=== PATIENT | female | born 1975 | race Caucasian/White ===

== ENCOUNTER 2020-05-31 16:49 | Emergency (ER) | payer MEDICAID ==
[~2020-05-31] VITALS: Ht 165.1 cm; Wt 80.9 kg
[2020-05-31 17:02] VITALS: Ht 165.1 cm; Wt 80.9 kg
[2020-05-31] MEDS ORDERED: LOPRESSOR25 MG PO ×2 (17:04→20:36)
[2020-05-31] MEDS ORDERED: ASPIRIN81 MG PO (17:05)
[2020-05-31 18:31] LABS: BASOPHILS 0.9 % (0-2); EOSINOPHILS 4.6 % (0-7); HEMATOCRIT 29.2 % (36.0-48.0); HEMOGLOBIN 8.1 g/dL (12-16); IMMATURE GRANULOCYTES 0.2 % (0-5); LYMPHOCYTE ABS# 1.89 10x3/uL (1.18-3.74); LYMPHOCYTES 35.1 % (15-50); MCHC 27.7 g/dL (31.0-37.0); MCV 61.5 fL (80.0-100.0); MONOCYTES 8.2 % (2-11); NEUTROPHIL ABS# 2.74 10x3/uL (1.56-6.13); PLATELET COUNT 196 10x3/uL (130-400); RBC 4.75 10x6/uL (4.00-5.40); RDW 18.4 % (11.5-14.5); WBC 5.4 10x3/uL (4.8-10.8)
[2020-05-31 18:36] LABS: MCH 17.1 pg (26.0-34.0)
[2020-05-31 18:40] LABS: CALC OSMOLALITY 272 mosm/kg (275-300); CALCIUM 9.4 mg/dL (8.5-10.1); CARBON DIOXIDE 25.2 mmol/L (21.0-32.0); CHLORIDE - SERUM 105 mmol/L (98-107); CREATININE - SERUM 0.7 mg/dL (0.6-1.3); GLUCOSE 92 mg/dL (74-106); POTASSIUM - SERUM 3.9 mmol/L (3.5-5.1); SODIUM 137 mmol/L (136-145); UREA NITROGEN 9 mg/dL (7-18); eGFR NON AFRICAN AMERICAN > 90 mL/min (90-120)
[2020-05-31 18:44] LABS: APTT 25.8 SECONDS (22.8-39.4); INR 1.08 (0.85-1.17); PROTIME 12.9 SECONDS (11.6-15.0)
[2020-05-31 18:55] LABS: ALBUMIN 3.9 g/dL (3.4-5.0); ALKALINE PHOSPHATASE 49 U/L (30-120); ALT (SGPT) 16 U/L (10-68); BILIRUBIN - TOTAL 0.63 mg/dL (0.2-1.3); CREATINE KINASE 53 UL (21-215); MAGNESIUM - SERUM 2.2 mg/dL (1.8-2.4); PROTEIN - SERUM 7.6 g/dL (6.4-8.2); TROPONIN-I < 0.017 ng/mL (0.000-0.060)
[2020-05-31] MEDS ORDERED: BAYER CHEWABLE81 MG PO (20:36)
[2020-05-31 21:14] VITALS: BP 130/64
== END 2020-05-31 21:10 | disposition home or self-care (01) ==
LOC: D.ER 16:49
PROVIDERS: Family Medicine
DX: G51.0 Bell's palsy (principal); R51.9 Headache, unspecified; R00.2 Palpitations